=== PATIENT | female | born 1985 | race Caucasian/White ===

== ENCOUNTER 2017-09-12 00:07 | Emergency (ER) | payer MEDICAID ==
[~2017-09-12] VITALS: Ht 167.6 cm; Wt 104.8 kg
[2017-09-12 00:16] VITALS: BP 144/86
--- NOTE | 2017-09-12 01:13 | NUR ---
TO ER BED 10
--- NOTE | 2017-09-12 01:15 | NUR ---
PATIENT IS A 32 Y/O FEMALE WHO PRESENTS TO THE ED C/O CHEST PAIN. PT STATES, "I TOOK SOME NYQUIL AND MY CHEST HURT." BUT PT DENIES CP AT THIS TIME. PT DENIES SOB, REPORTS DIARRHEA DENIES NAUSEA/VOMITING. PT AAOX4, RR EVEN/UNLABORED. PT AAOX4, RR EVEN/UNLABORED. PT REPOSITIONED FOR COMFORT, BED IN LOWEST POSITION. ER MD DR. GARSIA NOTIFIED. WILL CONTINUE TO MONITOR.
--- NOTE | 2017-09-12 02:45 | NUR ---
Patient appears to be resting comfortably in bed. Vital Signs within normal limits. Respirations even and unlabored.
[2017-09-12 03:34] VITALS: BP 125/85
--- NOTE | 2017-09-12 03:34 | NUR ---
Patient discharged with v/s stable. Written and verbal after care instructions given and explained. Patient verbalized understanding. Ambulatory with steady gait. All questions addressed prior to discharge. Advised to follow up with PMD.
== END 2017-09-12 03:34 | disposition home or self-care (01) ==
LOC: MED 00:07
DX: J06.9 Acute upper respiratory infection, unspecified (principal)
CPT/HCPCS: 36415; 71045; 81002; 81025; 87804; 93005; 99285; Q0092